=== PATIENT | female | born 1995 | race Caucasian/White ===

== ENCOUNTER 2016-11-06 09:15 | Emergency (ER) | payer OTHER ==
[~2016-11-06] VITALS: Ht 152.4 cm; Wt 43.1 kg
[2016-11-06 09:53] LABS: BASOPHIL % 0.4 % (0-2); PLATELET COUNT 240 x10^3mcL (130-400); RED CELL DISTRIBUTION WIDTH 13.6 % (11.5-14.5)
[2016-11-06 10:17] LABS: CALCIUM 8.8 mg/dL (8.5-10.1); CARBON DIOXIDE 25.4 mmol/L (21-32); CHLORIDE SERUM 104 mmol/L (98-107); CREATININE SERUM 0.6 mg/dL (0.6-1.0); GFR1 > 60 mL/min; GLUCOSE SERUM 103 mg/dL (74-106); POTASSIUM SERUM 3.5 mmol/L (3.5-5.1); SODIUM SERUM 139 mmol/L (136-145)
[2016-11-06 10:21] LABS: ALBUMIN 4.1 g/dL (3.4-5.0); ALKALINE PHOSPHATASE 143 U/L (46-116); ALT/SGPT 42 U/L (14-59); AMYLASE 79 U/L (25-115); AST/SGOT 34 U/L (15-37); BILIRUBIN TOTAL 1.28 mg/dL (0.20-1.00); LIPASE 189 IU/L (73-393)
[2016-11-06 13:03] VITALS: BP 110/66
== END 2016-11-06 13:03 | disposition home or self-care (01) ==
LOC: ED 09:15
PROVIDERS: Emergency Medicine
DX: A08.4 Viral intestinal infection, unspecified (principal)
CPT/HCPCS: 83880; J0780; J1170; J1200; J1885; J2405; J2550; J7030

== ENCOUNTER 2016-12-29 04:10 | Emergency (ER) | payer OTHER ==
[2016-12-29 05:05] LABS: BASOPHIL % 0.5 % (0-2); PLATELET COUNT 222 x10^3mcL (130-400); RED CELL DISTRIBUTION WIDTH 13.5 % (11.5-14.5)
[2016-12-29 05:13] LABS: CALCIUM 9.1 mg/dL (8.5-10.1); CHLORIDE SERUM 105 mmol/L (98-107); CREATININE SERUM 0.6 mg/dL (0.6-1.0); GFR1 > 60 mL/min; GLUCOSE SERUM 103 mg/dL (74-106); POTASSIUM SERUM 3.4 mmol/L (3.5-5.1); SODIUM SERUM 141 mmol/L (136-145)
[2016-12-29 05:20] LABS: ALBUMIN 3.9 g/dL (3.4-5.0); ALKALINE PHOSPHATASE 128 U/L (46-116); ALT/SGPT 50 U/L (14-59); AST/SGOT 35 U/L (15-37); BILIRUBIN TOTAL 0.74 mg/dL (0.20-1.00); CHOLESTEROL 186 mg/dL (<200); CHOLESTEROL/HDL RATIO 3.4; HDL CHOLESTEROL 54 mg/dL (40-60); LIPASE 201 IU/L (73-393); TOTAL PROTEIN, SERUM 7.7 g/dL (6.4-8.2); TRIGLYCERIDES 90 mg/dL (<150)
[2016-12-29 05:26] LABS: T3 TOTAL 1.8 ng/mL
[2016-12-29 05:30] LABS: microscopic required? YES; urine erythrocyte 2+ (NEGATIVE)
[2016-12-29 05:43] LABS: FREE T4 1.23 ng/dL (0.76-1.46); FREE THYROXINE INDEX 3.6 ug/dL (1.4-4.5); T4(THYROXINE) 11.2 ug/dL (4.7-13.3)
[2016-12-29 06:58] LABS: AMPHETAMINE QUAL UR NONE DETECTED (NEG <=1000)
[2016-12-29 08:03] VITALS: BP 120/75
[2016-12-30] MEDS ORDERED: ZOFRAN8 MG PO (12:45)
== END 2016-12-29 08:10 | disposition home or self-care (01) ==
LOC: ED 04:10
PROVIDERS: Specialist
DX: R10.13 Epigastric pain (principal); R07.9 Chest pain, unspecified
CPT/HCPCS: 83880; 84439; J2060; J7030; Q0092; Q0162; Q9967

== ENCOUNTER 2016-12-29 11:02 | Inpatient (IN) | payer OTHER ==
[~2016-12-29] VITALS: Ht 152.4 cm; Wt 43.1 kg
[2016-12-29 11:47] LABS: BASOPHIL % 0.3 % (0-2); PLATELET COUNT 236 x10^3mcL (130-400); RED CELL DISTRIBUTION WIDTH 13.4 % (11.5-14.5)
[2016-12-29 11:59] LABS: CALCIUM 8.9 mg/dL (8.5-10.1); CARBON DIOXIDE 24.2 mmol/L (21-32); CHLORIDE SERUM 105 mmol/L (98-107); CREATININE SERUM 0.6 mg/dL (0.6-1.0); GFR1 > 60 mL/min; GLUCOSE SERUM 105 mg/dL (74-106); POTASSIUM SERUM 3.5 mmol/L (3.5-5.1); SODIUM SERUM 141 mmol/L (136-145)
[2016-12-29 12:04] LABS: ALBUMIN 3.8 g/dL (3.4-5.0); ALKALINE PHOSPHATASE 123 U/L (46-116); ALT/SGPT 48 U/L (14-59); AST/SGOT 29 U/L (15-37); BILIRUBIN TOTAL 0.82 mg/dL (0.20-1.00); LIPASE 165 IU/L (73-393); TOTAL PROTEIN, SERUM 7.7 g/dL (6.4-8.2)
[2016-12-29 13:00] LABS: T3 TOTAL 1.44 ng/mL
[2016-12-29 13:05] LABS: FREE T4 1.1 ng/dL (0.76-1.46); FREE THYROXINE INDEX 3.5 ug/dL (1.4-4.5)
[2016-12-29 13:22] LABS: CHOLESTEROL/HDL RATIO 3.2; MAGNESIUM 1.9 mg/dL (1.8-2.4); PHOSPHOROUS 2.8 mg/dL (2.5-4.9)
[2016-12-29 14:25] VITALS: BP 102/70
[2016-12-29 14:45] LABS: AMPHETAMINE QUAL UR NONE DETECTED (NEG <=1000)
[2016-12-29 18:04] VITALS: BP 108/72
[2016-12-29 18:24] VITALS: BP 108/72
[2016-12-29 22:02] VITALS: BP 105/67
[2016-12-30 06:11] VITALS: BP 99/57
[2016-12-30 07:47] LABS: BASOPHIL % 0.5 % (0-2); PLATELET COUNT 194 x10^3mcL (130-400); RED CELL DISTRIBUTION WIDTH 13.3 % (11.5-14.5)
[2016-12-30 08:09] LABS: CALCIUM 8.2 mg/dL (8.5-10.1); CARBON DIOXIDE 24.3 mmol/L (21-32); CHLORIDE SERUM 109 mmol/L (98-107); CREATININE SERUM 0.6 mg/dL (0.6-1.0); GFR1 > 60 mL/min; GLUCOSE SERUM 63 mg/dL (74-106); MAGNESIUM 1.8 mg/dL (1.8-2.4); PHOSPHOROUS 3.2 mg/dL (2.5-4.9); POTASSIUM SERUM 3.4 mmol/L (3.5-5.1); SODIUM SERUM 142 mmol/L (136-145)
[2016-12-30 10:08] VITALS: BP 120/76
[2016-12-30] MEDS ORDERED: ZOFRAN8 MG PO (12:45)
[2016-12-30 13:28] VITALS: BP 120/76
== END 2016-12-30 15:11 | disposition home or self-care (01) | DRG 249 ==
LOC: ED 11:02 → DU 12:12 → MU 12:12 → DU 14:10 → MU 21:12
PROVIDERS: Emergency Medicine; ADMIT Family Medicine
DX: A08.4 Viral intestinal infection, unspecified (principal); E83.51 Hypocalcemia; Z68.1 Body mass index [BMI] 19.9 or less, adult; F41.1 Generalized anxiety disorder; H50.812 Duane's syndrome, left eye; E78.5 Hyperlipidemia, unspecified; R31.9 Hematuria, unspecified; F41.0 Panic disorder [episodic paroxysmal anxiety]; D64.9 Anemia, unspecified; E87.6 Hypokalemia; Z80.3 Family history of malignant neoplasm of breast; Z80.43 Family history of malignant neoplasm of testis
CPT/HCPCS: 83880; 84439; G0480; J2405; J7030; Q0092

== ENCOUNTER 2017-01-05 01:50 | Emergency (ER) | payer OTHER ==
[~2017-01-05 01:50] MED LIST: ZOFRAN8 MG PO
[2017-01-05 03:05] LABS: BASOPHIL % 1.1 % (0-2); PLATELET COUNT 232 x10^3mcL (130-400); RED CELL DISTRIBUTION WIDTH 12.3 % (11.5-14.5)
[2017-01-05 03:13] LABS: CARBON DIOXIDE 28.6 mmol/L (21-32); CHLORIDE SERUM 102 mmol/L (98-107); CREATININE SERUM 0.7 mg/dL (0.6-1.0); GFR1 > 60 mL/min; GLUCOSE SERUM 106 mg/dL (74-106); POTASSIUM SERUM 3.6 mmol/L (3.5-5.1); SODIUM SERUM 138 mmol/L (136-145)
[2017-01-05 03:20] LABS: ALBUMIN 3.9 g/dL (3.4-5.0); ALKALINE PHOSPHATASE 110 U/L (46-116); ALT/SGPT 30 U/L (14-59); AST/SGOT 22 U/L (15-37); BILIRUBIN TOTAL 0.5 mg/dL (0.20-1.00); LIPASE 221 IU/L (73-393); TOTAL PROTEIN, SERUM 7.4 g/dL (6.4-8.2)
[2017-01-05 06:50] VITALS: BP 114/76
== END 2017-01-05 06:50 | disposition home or self-care (01) ==
LOC: ED 01:50
PROVIDERS: Emergency Medicine
DX: K52.9 Noninfective gastroenteritis and colitis, unspecified (principal)
CPT/HCPCS: J1885; J7030; Q0092

== ENCOUNTER 2017-01-05 09:25 | Emergency (ER) | payer OTHER ==
[~2017-01-05] VITALS: Ht 152.4 cm; Wt 43.5 kg
[2017-01-05 10:22] LABS: microscopic required? NO
[2017-01-05 10:37] LABS: BASOPHIL % 0.3 % (0-2); PLATELET COUNT 218 x10^3mcL (130-400); RED CELL DISTRIBUTION WIDTH 13.6 % (11.5-14.5)
[2017-01-05 10:45] LABS: UA SPECIFIC GRAVITY 1.015 (1.005-1.035); urine erythrocyte NEGATIVE (NEGATIVE)
[2017-01-05 11:20] LABS: ALBUMIN 3.7 g/dL (3.4-5.0); ALKALINE PHOSPHATASE 99 U/L (46-116); ALT/SGPT 26 U/L (14-59); AST/SGOT 18 U/L (15-37); BILIRUBIN TOTAL 0.7 mg/dL (0.20-1.00); CARBON DIOXIDE 27.7 mmol/L (21-32); CHLORIDE SERUM 105 mmol/L (98-107); CREATININE SERUM 0.5 mg/dL (0.6-1.0); GFR1 > 60 mL/min; GLUCOSE SERUM 101 mg/dL (74-106); POTASSIUM SERUM 3.3 mmol/L (3.5-5.1); SODIUM SERUM 140 mmol/L (136-145); TOTAL PROTEIN, SERUM 7.1 g/dL (6.4-8.2)
[2017-01-05 11:37] LABS: CALCIUM 8.5 mg/dL (8.5-10.1)
[2017-01-05 11:49] LABS: AMPHETAMINE QUAL UR NONE DETECTED (NEG <=1000)
[2017-01-05 11:53] LABS: FREE T4 1.08 ng/dL (0.76-1.46); FREE THYROXINE INDEX 3.6 ug/dL (1.4-4.5); T4(THYROXINE) 10.5 ug/dL (4.7-13.3)
[2017-01-05 11:54] LABS: PHOSPHOROUS 3.1 mg/dL (2.5-4.9)
[2017-01-05 11:57] LABS: CHOLESTEROL/HDL RATIO 2.8; MAGNESIUM 1.9 mg/dL (1.8-2.4)
[2017-01-05 12:01] LABS: T3 TOTAL 1.32 ng/mL
[2017-01-05 16:40] VITALS: BP 110/64
== END 2017-01-05 16:40 | disposition home or self-care (01) ==
LOC: ED 09:25
PROVIDERS: Emergency Medicine; Family Medicine
DX: K52.9 Noninfective gastroenteritis and colitis, unspecified (principal)
CPT/HCPCS: 36415; 84439; J0295; J1885; J1956; J2405; J3010; J3490; J7030

== ENCOUNTER 2017-03-15 19:24 | Emergency (ER) | payer OTHER ==
[~2017-03-15] VITALS: Ht 152.4 cm; Wt 42.2 kg
[2017-03-15 20:56] LABS: BASOPHIL % 0.3 % (0-2); PLATELET COUNT 225 x10^3mcL (130-400); RED CELL DISTRIBUTION WIDTH 13.4 % (11.5-14.5)
[2017-03-15 21:04] LABS: CALCIUM 8.6 mg/dL (8.5-10.1); CARBON DIOXIDE 28.3 mmol/L (21-32); CHLORIDE SERUM 107 mmol/L (98-107); CREATININE SERUM 0.7 mg/dL (0.6-1.0); GFR1 > 60 mL/min; GLUCOSE SERUM 91 mg/dL (74-106); POTASSIUM SERUM 3.5 mmol/L (3.5-5.1); SODIUM SERUM 141 mmol/L (136-145)
[2017-03-15 21:10] LABS: ALBUMIN 3.9 g/dL (3.4-5.0); ALKALINE PHOSPHATASE 163 U/L (46-116); ALT/SGPT 85 U/L (14-59); AST/SGOT 47 U/L (15-37); BILIRUBIN TOTAL 0.7 mg/dL (0.20-1.00); LIPASE 218 IU/L (73-393)
[2017-03-15 21:12] LABS: AMYLASE 223 U/L (25-115)
[2017-03-15 22:59] VITALS: BP 106/67
== END 2017-03-15 22:59 | disposition home or self-care (01) ==
LOC: ED 19:24
PROVIDERS: Specialist
DX: R10.32 Left lower quadrant pain (principal)
CPT/HCPCS: 83880; J1885; J2405; J3010; J7030

== ENCOUNTER 2017-07-25 08:41 | Emergency (ER) | payer OTHER ==
[~2017-07-25] VITALS: Ht 152.4 cm; Wt 43.1 kg
[2017-07-25 08:45] VITALS: Ht 152.4 cm; Wt 43.1 kg
[2017-07-25 12:30] VITALS: BP 125/75
== END 2017-07-25 12:30 | disposition home or self-care (01) ==
LOC: ED 08:41
DX: J06.9 Acute upper respiratory infection, unspecified (principal)
CPT/HCPCS: J1885; J7030

== ENCOUNTER 2019-04-07 19:32 | Emergency (ER) | payer OTHER ==
[~2019-04-07] VITALS: Ht 152.4 cm; Wt 44.0 kg
[2019-04-07 19:38] VITALS: Ht 152.4 cm; Wt 44.0 kg
[2019-04-07 20:59] LABS: BASOPHIL % 0.2 % (0-2); PLATELET COUNT 237 x10^3mcL (130-400); RED CELL DISTRIBUTION WIDTH 13.5 % (11.5-14.5)
[2019-04-07 21:26] LABS: CALCIUM 8.5 mg/dL (8.5-10.1); CARBON DIOXIDE 23.2 mmol/L (21-32); CHLORIDE SERUM 105 mmol/L (98-107); CREATININE SERUM 0.8 mg/dL (0.6-1.0); GFR1 > 60 mL/min; GLUCOSE SERUM 104 mg/dL (74-106); POTASSIUM SERUM 3.5 mmol/L (3.5-5.1); SODIUM SERUM 140 mmol/L (136-145)
[2019-04-07 21:31] LABS: ALKALINE PHOSPHATASE 105 U/L (46-116); ALT/SGPT 47 U/L (14-59); AST/SGOT 28 U/L (15-37); BILIRUBIN TOTAL 0.96 mg/dL (0.20-1.00); LIPASE 157 IU/L (73-393); TOTAL PROTEIN, SERUM 7.9 g/dL (6.4-8.2)
[2019-04-08 00:43] VITALS: BP 101/57
== END 2019-04-08 00:43 | disposition home or self-care (01) ==
LOC: ED 19:32
PROVIDERS: Emergency Medicine
DX: R10.13 Epigastric pain (principal); R11.2 Nausea with vomiting, unspecified; G89.29 Other chronic pain; F41.9 Anxiety disorder, unspecified; K58.9 Irritable bowel syndrome, unspecified
CPT/HCPCS: J2270; J2405; J2765; J3010; J7030

== ENCOUNTER 2019-05-31 23:06 | Emergency (ER) | payer SELFPAY ==
[~2019-05-31] VITALS: Ht 152.4 cm; Wt 44.0 kg
[2019-05-31 23:10] VITALS: Ht 152.4 cm; Wt 44.0 kg
[2019-05-31 23:54] LABS: BASOPHIL % 0.4 % (0-2); PLATELET COUNT 262 x10^3mcL (130-400); RED CELL DISTRIBUTION WIDTH 12.7 % (11.5-14.5)
[2019-06-01 00:37] LABS: ALBUMIN 3.7 g/dL (3.4-5.0); ALKALINE PHOSPHATASE 129 U/L (46-116); ALT/SGPT 88 U/L (14-59); AMYLASE 70 U/L (25-115); AST/SGOT 59 U/L (15-37); BILIRUBIN TOTAL 0.8 mg/dL (0.20-1.00); LIPASE 176 IU/L (73-393); TOTAL PROTEIN, SERUM 7.6 g/dL (6.4-8.2)
[2019-06-01 01:17] LABS: CALCIUM 8.5 mg/dL (8.5-10.1); CARBON DIOXIDE 25.1 mmol/L (21-32); CHLORIDE SERUM 105 mmol/L (98-107); CREATININE SERUM 0.7 mg/dL (0.6-1.0); GFR1 > 60 mL/min; GLUCOSE SERUM 112 mg/dL (74-106); POTASSIUM SERUM 3.5 mmol/L (3.5-5.1); SODIUM SERUM 140 mmol/L (136-145)
[2019-06-01 04:01] VITALS: BP 135/74
== END 2019-06-01 04:02 | disposition home or self-care (01) ==
LOC: ED 23:06
PROVIDERS: Emergency Medicine
DX: R11.15 Cyclical vomiting syndrome unrelated to migraine (principal); R10.12 Left upper quadrant pain; F41.9 Anxiety disorder, unspecified; H50.812 Duane's syndrome, left eye
CPT/HCPCS: J1630; J1885; J2405; J3010; J7030; Q0162